=== PATIENT | female | born 1970 | race Caucasian/White ===

== ENCOUNTER 2021-09-03 10:57 | Emergency (ER) | payer BC ==
[~2021-09-03] VITALS: Ht 162.6 cm; Wt 76.5 kg
--- NOTE | 2021-09-03 11:31 | EKG ---
[address] [address] Test Date: 2021-09-03 Test Time: 11:04:27 Pat Name: JESUSITA BOSS Department: Room: Gender: F User Interface Developer: CINTHIA : 1970 Requested By: DERICK CANTOR Order Number: [id number] Reading MD: Measurements Intervals [place] Rate: 74 P: 57 MD: 164 QRS: 43 QRSD: 74 T: 39 QT: 354 QTc: 393 Interpretive Statements SINUS RHYTHM NORMAL ECG RI6.02 No previous ECG available for comparison
--- NOTE | 2021-09-03 11:41 | PHYS DOC ---
Past History Additional Past Medical Histor: nerve damage (DERICK CANTOR APRN) Past Surgical History: Tonsillectomy Additional Past Surgical Histo: spinal surgery (DERICK CANTOR APRN) Alcohol Use: None (DERICK CANTOR APRN) General Adult EDM: Chief Complaint: MULTIPLE COMPLAINTS HPI: HPI: Patient is a 50-year-old female who presents with pain between her shoulder blades. Patient states that she was at work when she started having pain between her shoulder blades and numbness and tingling in her lips and left arm. Patient denied chest pain. Denied nausea or vomiting. Patient did report dizziness. Patient states that she checked her blood pressure and it was elevated. Blood pressure on arrival was 150s/90s. Patient denies history of high blood pressure. Patient does have spinal stenosis status post to be getting a surgery on her neck. Patient also reports nerve damage in her feet and takes medication for that. Denies all other health history. Denies any family history of early or cardiac issues. Patient denies all symptoms at this time. Patient reports symptoms only lasted a few minutes. (DERICK CANTOR APRN) Review of Systems: Review of Systems: ROS At least 10 ROS systems have been reviewed and are negative except as documented in the HPI. General: Negative except as outlined in HPI above. Skin: Negative except as outlined in HPI above. HEENT: Negative except as outlined in HPI above. Neck: Negative except as outlined in HPI above. Respiratory: Negative except as outlined in HPI above.. Cardiovascular: Negative except as outlined in HPI above. Abdomen: Negative except as outlined in HPI above. : Negative except as outlined in HPI above. Back/MSK: Negative except as outlined in HPI above. Neuro: Negative except as outlined in HPI above. Psych: Negative except as outlined in HPI above. (DERICK CANTOR STUDENT SERVICES DIRECTOR) Physical Exam: PE: Constitutional: Well developed, well nourished, no acute distress, non-toxic appearance. [] HENT: Normocephalic, atraumatic, bilateral external ears normal, oropharynx moist, no oral exudates, nose normal. [] Eyes: PERRLA, EOMI, conjunctiva normal, no discharge. [] Neck: Normal range of motion, no tenderness, supple, no stridor. [] Cardiovascular:Heart rate regular rhythm, no murmur [] Lungs & Thorax: Bilateral breath sounds clear to auscultation [] Abdomen: Bowel sounds normal, soft, no tenderness, no masses, no pulsatile masses. [] Skin: Warm, dry, no erythema, no rash. [] Back: No tenderness, no CVA tenderness. [] Extremities: No tenderness, no cyanosis, no clubbing, ROM intact, no edema. [] Neurologic: Alert and oriented X 3, normal motor function, normal sensory function, no focal deficits noted. Tingling to lips and left arm Psychologic: Affect normal, judgement normal, mood normal. [] (DERICK CANTOR APRN) Current Patient Data: Vital Signs: Vital Signs Date Time Temp Pulse Resp B/P (MAP) Pulse Ox O2 Delivery O2 Flow Rate FiO2 09/03/21 11:06 98.1 70 18 152/97 (115) 71 Room Air (DERICK CANTOR APRN) EKG: EKG: Sinus rhythm. Heart rate 74 bpm. [] (DERICK CANTOR APRN) Radiology/Procedures: Radiology/Procedures: [] EXAM: Chest, 2 views. HISTORY: Arm numbness COMPARISON: None. FINDINGS: 2 views of the chest are obtained. There is no infiltrate, pleural effusion or pneumothorax. The heart is normal in size. IMPRESSION: No acute pulmonary finding. Electronically signed by: Maribell Royal MD (09/03/2021 12:15 PM) [facility] EXAM: Head CT without contrast. HISTORY: Numbness. TECHNIQUE: Computed tomographic images of the head were obtained without contrast. *One or more of the following individualized dose reduction techniques were utilized for this examination: 1. Automated exposure control. 2. Adjustment of the mA and/or kV according to patient size. 3. Use of iterative reconstruction technique. COMPARISON: MRI dated 10/18/2009. FINDINGS: There is no acute or subacute extra-axial or intraparenchymal he morrhage. There is no mass effect or midline shift. There is no hydrocephalus. The do-white matter differentiation pattern is intact. There is mild paranasal sinus mucosal thickening. There are tiny maxillary sinus mucous retention cysts. The orbits and mastoid air cells are unremarkable. There is no suspicious calvarial lesion. IMPRESSION: No acute intracranial finding. Note is made that MRI is more sensitive for acute infarction. Electronically signed by: Maribell Royal MD (09/03/2021 12:05 PM) [facility] (DERICK CANTOR APRN) Heart Score: C/O Chest Pain: No Risk Factors: Risk Factors: DM, Current or recent (<one month) smoker, HTN, HLP, family history of CAD, obesity. Risk Scores: Score 0 - 3: 2.5% MACE over next 6 weeks - Discharge Home Score 4 - 6: 20.3% MACE over next 6 weeks - Admit for Clinical Observation Score 7 - 10: 72.7% MACE over next 6 weeks - Early Invasive Strategies (DERICK CANTOR APRN) Course & Med Decision Making: Course & Med Decision Making Pertinent Labs and Imaging studies reviewed. (See chart for details) [] 50-year-old female presents with pain between her shoulder blades started w hile she was at work. Patient also had numbness and tingling in her lips and left arm. Patient denies all symptoms on arrival to the ER. Symptoms lasted only a few minutes and resolved. Patient denied ever having chest pain. Neuro exam was negative. Work-up in ER consisted of EKG, blood work, troponin level, CT head. All labs unremarkable. CT head unremarkable. Discussed results with patient. Advised patient she needs to follow-up with her PCP on Saturday for further management. Discussed return precautions. Patient verbalizes understanding of discharge instructions. Patient is hemodynamically stable upon disposition. (DERICK CANTOR APRN) Dragon Disclaimer: Dragon Disclaimer: This electronic medical record was generated, in whole or in part, using a voice recognition dictation system. (DERICK CANTOR APRN) Attending Co-Sign The patient was seen and interviewed as well as examined at the bedside. The chart was reviewed. The case was discussed. Agree with the plan of care. (WHEELER,IMANI DO) Departure Departure: Impression: Primary Impression: Dizziness Disposition: HOME / SELF CARE / HOMELESS Condition: STABLE Referrals: PCP,UNKNOWN (PCP) Patient Instructions: Dizziness, [id number] Additional Instructions: You were seen in the emergency room for pain between her shoulder blades and numbness in your face and arm. All of your labs were unremarkable. CT of your head was also unremarkable. Please follow-up with your PCP on Saturday for further management. Return to the emergency room if you have worsening symptoms or concerns such as shortness of breath, chest pain, increasing pain, weakness. EMERGENCY DEPARTMENT GENERAL DISCHARGE INSTRUCTIONS Thank you for coming to [facility] (ED) today and trusting us with you care. We trust that you had a positivie experience in our Emergency Department. If you wish to speak to the department management, you may call the director at [phone]. YOUR FOLLOW UP INSTRUCTIONS ARE FOLLOWS: 1. Do you have a private Doctor? If you do not have a private doctor, please ask for a resource list of physicians or clinics that may be able to assist you with follow up care. 2. The Emergency Physician has interpreted your x-rays. The X-Ray specialist will also review them. If there is a change in the findings, you will be notified in 48 hours when at all possible. 3. A lab test or culture has been done, your results will be reviewed and you will be notified if you need a change in treatment. ADDITIONAL INSTRUCTIONS AND INFORMATION: 1. Your care today has been supervised by a physician who is specially trained in emergency care. Many problems require more than one evaluation for a complete diagnosis and treatment. We recommend that you schedule your follow up appointment as recommended to ensure complete treatment of you illness or injury. If you are unable to obtain follow up care and continue to have a problem, or if your condition worsens, we recommend that you return to the ED. 2. We are not able to safely determine your condition over the phone nor are we able to give sound medical advice over the phone. For these safety reasons, if you call for medical advice we will ask you to come to the ED for further evaluation. 3. If you have any questions regarding these discharge instructions please call the ED at [phone]. SAFETY INFORMATION: In the interest of safety, wellness, and injury prevention; we encourage you to wear your sealbelt, if you smoke; quite smoking, and we encourage family to use a pro tective helmet for bicycling and other sporting events that present an increased risk for head injury. IF YOUR SYMPTOMS WORSEN OR NEW SYMPTOMS DEVELOP, OR YOU HAVE CONCERNS ABOUT YOUR CONDITION; OR IF YOUR CONDITION WORSENS WHILE YOU ARE WAITING FOR YOUR FOLLOW UP APPOINTMENT; EITHER CONTACT YOUR PRIMARY CARE DOCTOR, THE PHYSICIAN WHOSE NAME AND NUMBER YOU WERE GIVEN, OR RETURN TO THE ED IMMEDIATELY. DERICK CANTOR APRN Sep 03, 2021 11:41 IMANI WHEELER DO Sep 04, 2021 15:55
[2021-09-03 12:08] LABS: BASO % 1 % (0-3); EOS # 0.3 x10^3/uL (0.0-0.7); EOS % 4 % (0-3); HEMOGLOBIN 14.1 g/dL (12.0-15.5); LYMPH # 1.6 x10^3/uL (1.0-4.8); LYMPH % 22 % (24-48); MEAN CORPUSCULAR HEMOGLOBIN 30 pg (25-35); MEAN CORPUSCULAR HGB CONC 33 g/dL (31-37); MEAN CORPUSCULAR VOLUME 90 fL (79-100); MONO # 0.6 x10^3/uL (0.0-1.1); MONO % 8 % (0-9); NEUT # 4.7 x10^3uL (1.8-7.7); NEUT % 66 % (31-73); PLATELET COUNT 239 x10^3/uL (140-400); RED BLOOD COUNT 4.77 x10^6/uL (3.50-5.40); WHITE BLOOD COUNT 7.2 x10^3/uL (4.0-11.0)
--- NOTE | 2021-09-03 12:08 | RAD ---
EXAM: Head CT without contrast. HISTORY: Numbness. TECHNIQUE: Computed tomographic images of the head were obtained without contrast. *One or more of the following individualized dose reduction techniques were utilized for this examina tion: 1. Automated exposure control. 2. Adjustment of the mA and/or kV according to patient size. 3. Use of iterative reconstruction technique. COMPARISON: MRI dated 10/18/2009. FINDINGS: There is no acute or subacute extra-axial or intraparenchymal hemorrhage. There is no mass effect or midline shift. There is no hydrocephalus. The do-white matter differentiation pattern is intact. There is mild paranasal sinus mucosal thickening. There are tiny maxillary sinus mucous retention cys ts. The orbits and mastoid air cells are unremarkable. There is no suspicious calvarial lesion. IMPRESSION: No acute intracranial finding. Note is made that MRI is more sensitive for acute infarcti on. Electronically signed by: Maribell Royal MD (09/03/2021 12:05 PM) [facility]
--- NOTE | 2021-09-03 12:17 | RAD ---
EXAM: Chest, 2 views. HISTORY: Arm numbness COMPARISON: None. FINDINGS: 2 views of the chest are obtained. There is no infiltrate, pleural effusion or pneumothorax . The heart is normal in size. IMPRESSION: No acute pulmonary finding. Electronically signed by: Maribell Royal MD (09/03/2021 12:15 PM) [facility]
[2021-09-03 12:26] LABS: CALCIUM 8.8 mg/dL (8.5-10.1); CREATININE 0.7 mg/dL (0.6-1.0); GFR 88.9; POTASSIUM 3.8 mmol/L (3.5-5.1)
[2021-09-03 12:32] LABS: ALBUMIN 3.8 g/dL (3.4-5.0); ALBUMIN/GLOBULIN RATIO 1.2 (1.0-1.7); TOTAL BILIRUBIN 0.3 mg/dL (0.2-1.0)
[2021-09-03 13:13] VITALS: BP 150/90
== END 2021-09-03 13:16 | disposition home or self-care (01) ==
LOC: ER 10:57
DX: R42 Dizziness and giddiness (principal); R20.0 Anesthesia of skin
CPT/HCPCS: 36415; 70450; 71046; 80053; 84484; 85025; 93005; 99285